=== PATIENT | male | born 1945 | race Caucasian/White ===

== ENCOUNTER 2018-02-12 00:06 | Emergency (ER) | payer MEDICAID ==
[~2018-02-12] VITALS: Ht 170.2 cm; Wt 65.8 kg
[2018-02-12 00:11] VITALS: BP 141/80
--- NOTE | 2018-02-12 00:14 | NUR ---
PT FROM [facility], 3RD ER VISIT OF THE DAY, SEEN 2 X AT [facility] FOR BILAT LEG PAIN 5/10 ACHING FROM WALKING ALL DAY PER PT. NO OTHER COMPLAINTS. HX: UNWILLING TO VERBALIZE MEDS: NONE
--- NOTE | 2018-02-12 00:20 | NUR ---
PT PRESENTED ER WITH C/O PAIN TO LEGS BILATERAL DUE TO WALKING ALL DAY PER PT. NO SIGN OF SWELLING.DENIES N/V/D; SKIN IS PINK/WARM/DRY; AAOX4 WITH EVEN AND STEADY GAIT; LUNGS CLEAR BL; HR EVEN AND REGULAR; PT DENIES ANY FEVER, CP, SOB, OR COUGH AT THIS TIME; PATIENT STATES PAIN OF 8/10 AT THIS TIME; VSS; PATIENT POSITIONED FOR COMFORT; HOB ELEVATED; BEDRAILS UP X2; BED DOWN. ER MD MADE AWARE OF PT STATUS.
[2018-02-12 03:00] VITALS: BP 141/80
--- NOTE | 2018-02-12 03:00 | NUR ---
Patient discharged with v/s stable. Written and verbal after care instructions given and explained. Patient alert, oriented and verbalized understanding of instructions. Ambulatory with steady gait. All questions addressed prior to discharge. ID band removed. Patient advised to follow up with PMD. Rx of IBUPROFEN was given. Patient educated on indication of medication including possible reaction and side effects. Opportunity to ask questions provided and answered.
== END 2018-02-12 03:00 | disposition home or self-care (01) ==
LOC: MED 00:06
DX: M79.604 Pain in right leg (principal); M79.605 Pain in left leg; F17.200 Nicotine dependence, unspecified, uncomplicated; Z59.0 Homelessness
CPT/HCPCS: 99282